=== PATIENT | male | born 1985 | race Hispanic/Latino ===

== ENCOUNTER 2023-01-02 09:55 | Emergency (ER) | payer OTHER ==
[~2023-01-02] VITALS: Ht 162.6 cm; Wt 56.7 kg
[2023-01-02 10:28] LABS: BASOPHILS % (AUTO) 0.2 % (0.0-5.0); EOSINOPHILS % (AUTO) 0.3 % (0.0-8.0); HEMATOCRIT 44.2 % (42-54); LYMPHOCYTES % (AUTO) 5.6 % (21.0-51.0); MEAN CORPUSCULAR HEMOGLOBIN 29.4 pg (27.0-33.0); MEAN CORPUSCULAR HGB CONC 32.6 g/dL (32.0-36.0); MEAN CORPUSCULAR VOLUME 90.4 fL (79-99); MONOCYTES % (AUTO) 5.9 % (3.0-13.0); NEUTROPHILS % (AUTO) 87.6 % (40.0-77.0); PLATELET COUNT (AUTO) 363 K/uL (130-400); RED BLOOD CELL COUNT(AUTO) 4.89 MIL/uL (4.50-6.20); RED CELL DISTRIBUTION WIDTH 13.8 % (11.0-15.5); WHITE BLOOD COUNT (AUTO) 15.5 K/uL (4.8-10.8)
[2023-01-02] MEDS ORDERED: KETOROLAC 30MG VIAL (30MG/ML) ONE (10:28)
[2023-01-02] MEDS ORDERED: ACETAMINOPHEN WITH CODEINE 1 TAB TAB ONE (10:29)
[2023-01-02] MEDS ORDERED: KETOROLAC 30MG VIAL (30MG/ML) IM ONE (10:30)
[2023-01-02] MEDS ORDERED: ACETAMINOPHEN WITH CODEINE 1 TAB TAB PO ONE (10:30)
[2023-01-02 10:40] LABS: CREATININE 0.8 mg/dL (0.5-1.5)
[2023-01-02 10:48] LABS: ALBUMIN 2.7 g/dL (3.5-5.0); TOTAL PROTEIN, SERUM 6.5 g/dL (6.0-8.3)
[2023-01-02] MEDS ORDERED: IBUP-2070 PO (11:13)
[2023-01-02] MEDS ORDERED: LEVO-70 PO (11:13)
[2023-01-02] MEDS ORDERED: CEFTRIAXONE 500MG VIAL IM SCH (11:30)
[2023-01-02] MEDS ORDERED: AZITHROMYCIN 250 MG TABLET PO ONE ×2 (11:30→11:50)
[2023-01-02] MEDS ORDERED: CEFTRIAXONE 500MG VIAL ONE (11:49)
[2023-01-02] MEDS ORDERED: LIDOCAINE HCL 1% 20 ML VIAL ONE (11:52)
[2023-01-02 12:03] VITALS: BP 108/78
== END 2023-01-02 12:08 | disposition home or self-care (01) ==
LOC: EDH 09:55
DX: N45.3 Epididymo-orchitis (principal)
CPT/HCPCS: 99285; 80053; 85025; 36415; 76870; 96372 ×2; J1885; J0696